=== PATIENT | female | born 1970 | race Two or more races ===

== ENCOUNTER 2022-11-25 16:13 | Emergency (ER) | payer MEDICAID ==
[~2022-11-25] VITALS: Ht 160 cm; Wt 65.5 kg
[2022-11-25] MEDS ORDERED: ATOR10TA PO (16:44)
[2022-11-25] MEDS ORDERED: LEVO25TA9 PO (16:44)
[2022-11-25] MEDS ORDERED: LEVO50 PO (17:15)
[2022-11-25] MEDS ORDERED: PREMC VG (17:15)
[2022-11-25] MEDS ORDERED: ERGO500093 PO (17:15)
[2022-11-25] MEDS ORDERED: ACETAMINOPHEN 500 MG TABLET PO ONE (17:15)
[2022-11-25 18:13] VITALS: BP 128/89
== END 2022-11-25 18:43 | disposition home or self-care (01) ==
LOC: EMS 16:15
DX: S40.011A Contusion of right shoulder, initial encounter (principal); S60.031A Contusion of right middle finger without damage to nail, initial encounter; E78.00 Pure hypercholesterolemia, unspecified; E03.9 Hypothyroidism, unspecified; Z98.890 Other specified postprocedural states; V99.XXXA Unspecified transport accident, initial encounter; Y93.89 Activity, other specified; Y92.89 Other specified places as the place of occurrence of the external cause; Y99.8 Other external cause status
CPT/HCPCS: 74176; 99284; 73030-TC; 73140-TC; Z7502; Z7610